=== PATIENT | male | born 1985 | race Two or more races ===

== ENCOUNTER 2023-04-13 11:07 | Emergency (ER) | payer OTHER ==
[~2023-04-13] VITALS: Ht 185.4 cm; Wt 90.7 kg
[2023-04-13 12:18] LABS: BASO # 0.1 10^3/uL (0.0-0.2); EOS # 0.7 10^3/uL (0.0-0.5); EOS % 9.8 % (0.0-3.0); HEMATOCRIT 42.3 % (42.0-52.0); HEMOGLOBIN 13.8 g/dl (13.5-17.5); LYMPH # 2.9 10^3/uL (1.5-5.0); LYMPH % 41.6 % (24.0-44.0); MEAN CORPUSCULAR HEMOGLOBIN 22.4 pg (27.0-33.0); MEAN CORPUSCULAR HGB CONC 32.6 g/dl (32.0-36.5); MEAN CORPUSCULAR VOLUME 68.7 fl (80.0-96.0); MONO # 0.5 10^3/uL (0.0-0.8); MONO % 6.8 % (2.0-8.0); NEUTROPHILS # 2.9 10^3/uL (1.5-8.5); NEUTROPHILS % 40.5 % (36.0-66.0); PLATELET COUNT, AUTOMATED 161 10^3/uL (150-450); RED BLOOD COUNT 6.16 10^6/uL (4.30-6.10)
[2023-04-13 12:27] LABS: INR 1.02; PROTHROMBIN TIME 13.6 SECONDS (12.5-14.5)
[2023-04-13 12:42] LABS: CK-MB VALUE MASS < 1.0 NG/ML (<3.6)
[2023-04-13 12:45] LABS: ALBUMIN 3.7 G/DL (3.2-5.2); ALKALINE PHOSPHATASE 92 U/L (46-116); ALT/SGPT 17 U/L (7.0-40); AST/SGOT 15 U/L (<34); BILIRUBIN,DIRECT 0.2 MG/DL (<0.4); BILIRUBIN,TOTAL 0.7 MG/DL (0.3-1.2); BLOOD UREA NITROGEN 15 MG/DL (9-23); CALCIUM LEVEL 8.9 MG/DL (8.5-10.1); CARBON DIOXIDE LEVEL 30 MMOL/L (20-31); CHLORIDE LEVEL 105 MMOL/L (98-107); CPK CREATINE PHOSPHOKINASE 299 U/L (46-171); CREATININE FOR GFR 1.17 MG/DL (0.70-1.30); GLOMERULAR FILTRATION RATE > 60.0 (>60); GLUCOSE, FASTING 90 MG/DL (60-100); MB/CK RELATIVE INDEX 0.33 (< OR =4); POTASSIUM SERUM 4.1 MMOL/L (3.5-5.1); SODIUM LEVEL 138 MMOL/L (136-145)
[2023-04-13 14:38] LABS: CK-MB VALUE MASS < 1.0 NG/ML (<3.6)
[2023-04-13 14:40] LABS: CPK CREATINE PHOSPHOKINASE 298 U/L (46-171); MB/CK RELATIVE INDEX 0.33 (< OR =4)
[2023-04-13 14:48] LABS: C REACTIVE PROTEIN QUANTITATIV < 0.40 MG/DL (<1.0)
[2023-04-13] MEDS ORDERED: ISOVUE-370 76% 100ML VIAL As Ordered ONE (14:58)
[2023-04-13] MEDS ORDERED: NAPR-837 PO (16:09)
[2023-04-13 16:35] VITALS: BP 129/88; TEMP 98; O2SAT 100
== END 2023-04-13 16:41 | disposition home or self-care (01) ==
LOC: M ED 11:07
DX: S23.420A Sprain of sternoclavicular (joint) (ligament), initial encounter (principal); Z91.048 Other nonmedicinal substance allergy status; Z79.1 Long term (current) use of non-steroidal anti-inflammatories (NSAID)